=== PATIENT | male | born 1995 | race American Indian/Alaskan Native ===

== ENCOUNTER 2020-03-20 19:54 | Emergency (ER) | payer OTHER ==
[2020-03-20 20:39] VITALS: BP 137/91
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
== END 2020-03-20 22:06 | disposition home or self-care (01) ==
LOC: ED 19:54
DX: S16.1XXA Strain of muscle, fascia and tendon at neck level, initial encounter (principal); Z79.899 Other long term (current) drug therapy; V49.49XA Driver injured in collision with other motor vehicles in traffic accident, initial encounter; Y93.89 Activity, other specified; Y92.488 Other paved roadways as the place of occurrence of the external cause; Y99.8 Other external cause status
CPT/HCPCS: 99283